=== PATIENT | male | born 1935 | race Caucasian/White ===

== ENCOUNTER 2016-11-05 19:33 | Inpatient (IN) | payer BC ==
[~2016-11-05] VITALS: Ht 190.5 cm; Wt 89.9 kg
[2016-11-05 21:02] LABS: HEMATOCRIT 44.7 % (38.0-50.0); MCH 31.4 PG (29.0-34.0); MCHC 34.5 G/DL (30.0-36.0); MCV 91.2 FL (86-99); MEAN PLAT.VOLUME 11.7 uM^3 (9.0-12.4); PLATELET COUNT 182 K/uL (156-360); RBC DIS.WIDTH-CV 13.3 % (11.8-14.6); RBC DIS.WIDTH-SD 43.5 % (39-53)
[2016-11-05 21:11] LABS: CHLORIDE 107 mEq/L (99-109); POTASSIUM 4.7 mEq/L (3.7-5.4)
[2016-11-05 21:12] LABS: SODIUM 137 mEq/L (136-147)
[2016-11-05 21:13] LABS: GLUCOSE 176 mg/dL (70-99)
[2016-11-05 21:15] LABS: ANION GAP 9 MEQ/L (2-14)
[2016-11-05 21:17] LABS: GFR ESTIMATE (CALCULATED) > 59 mL/min/
[2016-11-05 21:18] LABS: UREA NITROGEN (BUN) 18 mg/dL (9-23)
[2016-11-05 21:24] LABS: TROP-I INTERPRETATION NEGATIVE; TROPONIN-I < 0.01 ng/mL (0.0-0.30)
[2016-11-05 21:28] LABS: DIGOXIN 0.5 ng/mL (0.8-2.0)
[2016-11-05 21:48] LABS: TOTAL BILIRUBIN 0.6 mg/dL (0.0-1.0)
[2016-11-05 21:49] LABS: ALKALINE PHOSPHATASE 73 IU/L (3-129)
[2016-11-05 21:53] LABS: LIPASE 45 U/L (1.0-51.0)
[2016-11-05 22:29] LABS: INFLUENZA A VIRAL ANTIGEN NEGATIVE; INFLUENZA B VIRAL ANTIGEN NEGATIVE
[2016-11-05] MEDS ORDERED: DIGOXIN125 MCG PO (23:38)
[2016-11-05] MEDS ORDERED: DIGOX125 MCG PO (23:39)
[2016-11-05] MEDS ORDERED: PRADAXA150 MG PO (23:40)
[2016-11-05] MEDS ORDERED: VITAMIN D31000 UNI2 PO (23:40)
[2016-11-05] MEDS ORDERED: METOPROLOL TART25 MG PO (23:40)
[2016-11-05] MEDS ORDERED: NEURONTIN100 MG PO (23:42)
[2016-11-05] MEDS ORDERED: ALPHAGAN 0100 DROP/5 BOTH EYES (23:42)
[2016-11-05] MEDS ORDERED: ARICEPT10 MG PO (23:43)
[2016-11-05] MEDS ORDERED: LATANOPROST2.5 ML BOTH EYES (23:43)
[2016-11-05] MEDS ORDERED: TAMSULOSIN HCL0.4 MG PO (23:43)
[2016-11-05] MEDS ORDERED: VITAMIN B-12500 MC5 SL (23:44)
[2016-11-05] MEDS ORDERED: DESYREL100 MG PO (23:44)
[2016-11-05] MEDS ORDERED: DUONEB 2.5-0.5 M3 ML AEROSOL (23:45)
[2016-11-06] VITALS (7 sets, daily range): BP systolic 80–135; BP diastolic 51–75
[2016-11-06 00:47] LABS: ADD MIUA? YES; BILIRUBIN NEGATIVE; BLOOD MODERATE; COLOR YELLOW ((YELLOW)); GLUCOSE (STRIP) NEGATIVE; KETONES NEGATIVE; LEUKOCYTES LARGE; NITRITE POSITIVE; PROTEIN (STRIP) TRACE; SPECIFIC GRAVITY 1.023 (1.000-1.030); UROBILINOGEN 0.2 MG/DL (0.2-1.0)
[2016-11-06 01:35] LABS: BACTERIA 4+; EPITHELIAL CELLS RARE; MUCUS 1+; WHITE BLOOD CELLS TNTC /HPF (0-5)
[2016-11-06 01:36] LABS: CASTS PRESENT /LPF; CRYSTALS NONE SEEN; HYALINE CASTS 0-5 /LPF
[2016-11-06 07:15] LABS: TROP-I INTERPRETATION NEGATIVE; TROPONIN-I < 0.01 ng/mL (0.0-0.30)
[2016-11-06 12:23] LABS: TROP-I INTERPRETATION NEGATIVE; TROPONIN-I < 0.01 ng/mL (0.0-0.30)
[2016-11-07 00:20] VITALS: BP 116/70
[2016-11-07 05:41] VITALS: BP 110/56
[2016-11-07 09:00] VITALS: BP 129/59
[2016-11-07 09:06] LABS: MCH 30.7 PG (29.0-34.0); MCHC 33.5 G/DL (30.0-36.0); MCV 91.8 FL (86-99); MEAN PLAT.VOLUME 11.8 uM^3 (9.0-12.4); PLATELET COUNT 178 K/uL (156-360); RBC DIS.WIDTH-CV 13.4 % (11.8-14.6); RBC DIS.WIDTH-SD 44.5 % (39-53); RED BLOOD COUNT 5.01 M/uL (4.00-5.50); WHITE BLOOD COUNT 6.2 K/uL (4.1-10.2)
[2016-11-07 09:35] LABS: ANION GAP 7 MEQ/L (2-14); CHLORIDE 105 MEQ/L (99-109); GFR ESTIMATE (CALCULATED) > 59 mL/min/; POTASSIUM 4.3 MEQ/L (3.7-5.4); SAMPLE HEMOLYSIS CHECK 0; SAMPLE ICTERIC CHECK 0; SAMPLE LIPEMIA CHECK 0; SODIUM 137 MEQ/L (136-147); UREA NITROGEN (BUN) 13 mg/dL (9-23)
[2016-11-07 09:41] LABS: GLUCOSE 92 mg/dL (70-99)
[2016-11-07] MEDS ORDERED: CIPRO500 MG PO (09:52)
[2016-11-07 11:35] VITALS: BP 134/79
== END 2016-11-07 16:38 | disposition home or self-care (01) | DRG 690 ==
LOC: EME 19:33 → EDOF 11-06 00:51 → 5WEST 11-06 00:51 → EDOF 11-06 00:51 → 5WEST 11-06 01:55
PROVIDERS: Emergency Medicine; Hospitalist
DX: N39.0 Urinary tract infection, site not specified (principal); I48.2 Chronic atrial fibrillation; G31.83 Neurocognitive disorder with Lewy bodies; R07.89 Other chest pain; R55 Syncope and collapse; F02.80 Dementia in other diseases classified elsewhere, unspecified severity, without behavioral disturbance, psychotic disturbance, mood disturbance, and anxiety; I10 Essential (primary) hypertension; H40.9 Unspecified glaucoma; Z91.81 History of falling; R94.31 Abnormal electrocardiogram [ECG] [EKG]; Z79.899 Other long term (current) drug therapy; Z87.891 Personal history of nicotine dependence
CPT/HCPCS: 70450; 71020; 80048; 80053; 80162; 81003; 83605; 83690; 84484; 85027; 87502; 93005; 99202; 99281; 99285; G8978 GP CJ; G8979 GP CI; J0696; J7030; J7050; J7120

== ENCOUNTER 2016-12-07 12:14 | Emergency (ER) | payer BC ==
[~2016-12-07] VITALS: Ht 190.5 cm; Wt 87.7 kg
[~2016-12-07 12:14] MED LIST: ALPHAGAN 0100 DROP/5 BOTH EYES; ARICEPT10 MG PO; CIPRO500 MG PO; DESYREL100 MG PO; DIGOX125 MCG PO; DIGOXIN125 MCG PO; DUONEB 2.5-0.5 M3 ML AEROSOL; LATANOPROST2.5 ML BOTH EYES; METOPROLOL TART25 MG PO; NEURONTIN100 MG PO; PRADAXA150 MG PO; TAMSULOSIN HCL0.4 MG PO; VITAMIN B-12500 MC5 SL; VITAMIN D31000 UNI2 PO
[2016-12-07 14:33] LABS: EOSINOPHIL (%) 2.4 % (0-5); EOSINOPHIL COUNT 0.3 K/uL (0-0.3); HEMATOCRIT 45.6 % (38.0-50.0); IMMATURE GRANULOCYTE (%) 0.4 % (0.0-0.7); IMMATURE GRANULOCYTE COUNT 0.4 K/uL; MCH 31.8 PG (29.0-34.0); MCHC 35.3 G/DL (30.0-36.0); MCV 89.9 FL (86-99); MEAN PLAT.VOLUME 11.2 uM^3 (9.0-12.4); MONOCYTE (%) 6.5 % (3-12); MONOCYTE COUNT 0.7 K/uL (0-0.8); NEUTROPHIL (%) 72.7 % (45-76); NEUTROPHIL COUNT 8.2 K/uL (1.8-6.4); PLATELET COUNT 189 K/uL (156-360); RBC DIS.WIDTH-SD 42.1 % (39-53); RED BLOOD COUNT 5.07 M/uL (4.00-5.50); WHITE BLOOD COUNT 11.2 K/uL (4.1-10.2)
[2016-12-07 14:39] LABS: CHLORIDE 108 mEq/L (99-109); POTASSIUM 4.5 mEq/L (3.7-5.4); SODIUM 140 mEq/L (136-147)
[2016-12-07 14:41] LABS: GLUCOSE 109 mg/dL (70-99)
[2016-12-07 14:42] LABS: ANION GAP 11 MEQ/L (2-14)
[2016-12-07 14:45] LABS: GFR ESTIMATE (CALCULATED) > 59 mL/min/
[2016-12-07 14:46] LABS: UREA NITROGEN (BUN) 18 mg/dL (9-23)
[2016-12-07] MEDS ORDERED: PERCOCET 5/31 TABLET PO (15:06)
[2016-12-07 16:10] VITALS: BP 141/104
== END 2016-12-07 16:44 | disposition home or self-care (01) ==
LOC: EME 12:14
PROVIDERS: Emergency Medicine
DX: S22.41XA Multiple fractures of ribs, right side, initial encounter for closed fracture (principal); M25.551 Pain in right hip; W18.30XA Fall on same level, unspecified, initial encounter; Y92.199 Unspecified place in other specified residential institution as the place of occurrence of the external cause; I10 Essential (primary) hypertension; G30.9 Alzheimer's disease, unspecified; F03.90 Unspecified dementia, unspecified severity, without behavioral disturbance, psychotic disturbance, mood disturbance, and anxiety; Z91.81 History of falling; Z87.891 Personal history of nicotine dependence
CPT/HCPCS: 70450; 71101; 73502; 80048; 85025; 93005; 99281; 99285

== ENCOUNTER 2016-12-10 04:49 | Emergency (ER) | payer BC ==
[~2016-12-10] VITALS: Ht 190.5 cm; Wt 84.3 kg
[~2016-12-10 04:49] MED LIST changes: +PERCOCET 5/31 TABLET PO
[2016-12-10 06:23] LABS: HEMATOCRIT 45.6 % (38.0-50.0); MCH 30.6 PG (29.0-34.0); MCHC 34.2 G/DL (30.0-36.0); MCV 89.6 FL (86-99); MEAN PLAT.VOLUME 11.4 uM^3 (9.0-12.4); PLATELET COUNT 219 K/uL (156-360); RBC DIS.WIDTH-CV 13.1 % (11.8-14.6); RBC DIS.WIDTH-SD 42.2 % (39-53); RED BLOOD COUNT 5.09 M/uL (4.00-5.50); WHITE BLOOD COUNT 10.6 K/uL (4.1-10.2)
[2016-12-10 06:36] LABS: ADD MIUA? YES; BILIRUBIN NEGATIVE; BLOOD SMALL; COLOR YELLOW ((YELLOW)); GLUCOSE (STRIP) NEGATIVE; KETONES NEGATIVE; LEUKOCYTES MODERATE; NITRITE POSITIVE; PROTEIN (STRIP) NEGATIVE; SPECIFIC GRAVITY 1.021 (1.000-1.030); UROBILINOGEN 0.2 MG/DL (0.2-1.0)
[2016-12-10 06:38] LABS: CHLORIDE 106 mEq/L (99-109); POTASSIUM 4.7 mEq/L (3.7-5.4); SODIUM 139 mEq/L (136-147)
[2016-12-10 06:39] LABS: GLUCOSE 104 mg/dL (70-99)
[2016-12-10 06:39] LABS: BACTERIA NONE SEEN /HPF; EPITHELIAL CELLS RARE /HPF; MUCUS 1+ /LPF; RED BLOOD CELLS 20-30 /HPF (0-5); UCUL ADDED? YES; WHITE BLOOD CELLS TNTC /HPF (0-5)
[2016-12-10 06:41] LABS: ANION GAP 9 MEQ/L (2-14)
[2016-12-10 06:43] LABS: GFR ESTIMATE (CALCULATED) > 59 mL/min/
[2016-12-10] MEDS ORDERED: BACTRIM,SEPT1 TABLET PO (06:43)
[2016-12-10 06:44] LABS: UREA NITROGEN (BUN) 21 mg/dL (9-23)
[2016-12-10 06:47] LABS: TROP-I INTERPRETATION NEGATIVE; TROPONIN-I < 0.01 ng/mL (0.0-0.30)
[2016-12-10 07:41] VITALS: BP 107/69
== END 2016-12-10 07:47 | disposition home or self-care (01) ==
LOC: EME → EDBD 04:49 → EME 07:47
PROVIDERS: Emergency Medicine
DX: S22.49XD Multiple fractures of ribs, unspecified side, subsequent encounter for fracture with routine healing (principal); N39.0 Urinary tract infection, site not specified; W18.30XA Fall on same level, unspecified, initial encounter; Y92.199 Unspecified place in other specified residential institution as the place of occurrence of the external cause; Z91.81 History of falling; G30.9 Alzheimer's disease, unspecified; F03.90 Unspecified dementia, unspecified severity, without behavioral disturbance, psychotic disturbance, mood disturbance, and anxiety; I10 Essential (primary) hypertension; Z87.891 Personal history of nicotine dependence
CPT/HCPCS: 70450; 80048; 81003; 84484; 85027; 87086; 93005; 99281; 99284; J0696

== ENCOUNTER 2016-12-12 12:08 | Inpatient (IN) | payer BC ==
[~2016-12-12] VITALS: Ht 188 cm; Wt 83.7 kg
[~2016-12-12 12:08] MED LIST changes: +BACTRIM,SEPT1 TABLET PO
[2016-12-12 12:56] LABS: EOSINOPHIL (%) 0.5 % (0-5); EOSINOPHIL COUNT 0.1 K/uL (0-0.3); HEMATOCRIT 46.4 % (38.0-50.0); IMMATURE GRANULOCYTE (%) 0.2 % (0.0-0.7); IMMATURE GRANULOCYTE COUNT 0.2 K/uL; LYMPHOCYTE COUNT 1.4 K/uL (1.0-2.8); MCH 30.8 PG (29.0-34.0); MCHC 33.8 G/DL (30.0-36.0); MEAN PLAT.VOLUME 11.1 uM^3 (9.0-12.4); MONOCYTE (%) 5.5 % (3-12); MONOCYTE COUNT 0.7 K/uL (0-0.8); NEUTROPHIL (%) 81.7 % (45-76); NEUTROPHIL COUNT 9.9 K/uL (1.8-6.4); PLATELET COUNT 233 K/uL (156-360); RBC DIS.WIDTH-CV 13.1 % (11.8-14.6); RBC DIS.WIDTH-SD 42.7 % (39-53); WHITE BLOOD COUNT 12.1 K/uL (4.1-10.2)
[2016-12-12 13:08] LABS: CHLORIDE 109 mEq/L (99-109); POTASSIUM 4.3 mEq/L (3.7-5.4); SODIUM 142 mEq/L (136-147)
[2016-12-12 13:10] LABS: INTER. NORMALIZED RATIO 1.1; PROTHROMBIN TIME 11.3 (9.2-11.2); PTT 36.6 (25-32)
[2016-12-12 13:12] LABS: ANION GAP 10 MEQ/L (2-14)
[2016-12-12 13:14] LABS: GFR ESTIMATE (CALCULATED) > 59 mL/min/; GLUCOSE 186 mg/dL (70-99)
[2016-12-12 13:15] LABS: UREA NITROGEN (BUN) 23 mg/dL (9-23)
[2016-12-12 13:20] LABS: TROP-I INTERPRETATION NEGATIVE; TROPONIN-I 0.08 ng/mL (0.0-0.30)
[2016-12-12 14:55] LABS: TROP-I INTERPRETATION NEGATIVE; TROPONIN-I 0.11 ng/mL (0.0-0.30)
[2016-12-12] MEDS ORDERED: ZGUARD (15:55)
[2016-12-12] MEDS ORDERED: ATIVAN0.5 MG PO (15:56)
[2016-12-12] MEDS ORDERED: LEXAPRO10 MG PO (15:57)
[2016-12-12] MEDS ORDERED: BACTRIM,SEPT1 TABLET PO (15:58)
[2016-12-12 19:41] LABS: TROP-I INTERPRETATION NEGATIVE; TROPONIN-I 0.15 ng/mL (0.0-0.30)
[2016-12-12 20:00] VITALS: BP 114/79
[2016-12-13] VITALS: BP 120/82
[2016-12-13 02:31] LABS: TROP-I INTERPRETATION NEGATIVE; TROPONIN-I 0.13 ng/mL (0.0-0.30)
[2016-12-13 07:49] VITALS: BP 161/68
[2016-12-13 10:08] LABS: EOSINOPHIL (%) 1.9 % (0-5); EOSINOPHIL COUNT 0.2 K/uL (0-0.3); HEMATOCRIT 45.2 % (38.0-50.0); IMMATURE GRANULOCYTE (%) 0.2 % (0.0-0.7); LYMPHOCYTE COUNT 3.4 K/uL (1.0-2.8); MCH 29.9 PG (29.0-34.0); MCHC 32.5 G/DL (30.0-36.0); MCV 92.1 FL (86-99); MEAN PLAT.VOLUME 11.8 uM^3 (9.0-12.4); MONOCYTE (%) 9.7 % (3-12); MONOCYTE COUNT 0.9 K/uL (0-0.8); NEUTROPHIL (%) 52.1 % (45-76); NEUTROPHIL COUNT 4.9 K/uL (1.8-6.4); PLATELET COUNT 239 K/uL (156-360); RBC DIS.WIDTH-CV 13.2 % (11.8-14.6); RBC DIS.WIDTH-SD 44.3 % (39-53); RED BLOOD COUNT 4.91 M/uL (4.00-5.50); WHITE BLOOD COUNT 9.4 K/uL (4.1-10.2)
[2016-12-13 10:39] LABS: ALKALINE PHOSPHATASE 74 IU/L (3-129); ANION GAP 9 MEQ/L (2-14); CHLORIDE 106 MEQ/L (99-109); DIRECT BILIRUBIN 0.2 mg/dL (0.0-0.3); GFR ESTIMATE (CALCULATED) > 59 mL/min/; POTASSIUM 4.4 MEQ/L (3.7-5.4); SAMPLE HEMOLYSIS CHECK 0; SAMPLE ICTERIC CHECK 0; SAMPLE LIPEMIA CHECK 0; SODIUM 140 MEQ/L (136-147); TOTAL BILIRUBIN 1.2 MG/DL (0.0-1.0); UREA NITROGEN (BUN) 21 mg/dL (9-23)
[2016-12-13 10:50] LABS: GLUCOSE 106 mg/dL (70-99)
[2016-12-13 11:33] VITALS: BP 96/68
[2016-12-13 15:37] VITALS: BP 121/70
[2016-12-13 20:00] VITALS: BP 100/65
[2016-12-13 23:31] VITALS: BP 119/75
[2016-12-14 04:39] VITALS: BP 108/62
[2016-12-14 10:38] VITALS: BP 123/89
[2016-12-14 10:41] VITALS: BP 93/63; BP 94/66
[2016-12-14 10:52] LABS: HEMATOCRIT 44.6 % (38.0-50.0); MCH 30.1 PG (29.0-34.0); MCV 91.2 FL (86-99); MEAN PLAT.VOLUME 11.5 uM^3 (9.0-12.4); PLATELET COUNT 245 K/uL (156-360); RBC DIS.WIDTH-CV 13.1 % (11.8-14.6); RBC DIS.WIDTH-SD 43.4 % (39-53); RED BLOOD COUNT 4.89 M/uL (4.00-5.50); WHITE BLOOD COUNT 9.1 K/uL (4.1-10.2)
[2016-12-14 11:23] LABS: ANION GAP 7 MEQ/L (2-14); CHLORIDE 105 MEQ/L (99-109); GFR ESTIMATE (CALCULATED) > 59 mL/min/; GLUCOSE 98 mg/dL (70-99); POTASSIUM 4.2 MEQ/L (3.7-5.4); SAMPLE HEMOLYSIS CHECK 0; SAMPLE ICTERIC CHECK 0; SAMPLE LIPEMIA CHECK 0; SODIUM 136 MEQ/L (136-147); UREA NITROGEN (BUN) 24 mg/dL (9-23)
[2016-12-14 12:31] LABS: DIGOXIN < 0.3 ng/mL (0.8-2.0)
[2016-12-14 16:42] VITALS: BP 93/61
[2016-12-14 18:14] LABS: ADD MIUA? YES; BILIRUBIN NEGATIVE; BLOOD NEGATIVE; COLOR YELLOW ((YELLOW)); GLUCOSE (STRIP) NEGATIVE; KETONES NEGATIVE; LEUKOCYTES MODERATE; NITRITE NEGATIVE; PROTEIN (STRIP) NEGATIVE; SPECIFIC GRAVITY 1.025 (1.000-1.030); UROBILINOGEN 0.2 MG/DL (0.2-1.0)
[2016-12-14 18:40] LABS: BACTERIA NONE SEEN /HPF; EPITHELIAL CELLS RARE /HPF; HYALINE CASTS 0-5 /LPF; MUCUS 2+ /LPF; UCUL ADDED? NO; WHITE BLOOD CELLS 20-30 /HPF (0-5)
[2016-12-14 19:15] VITALS: BP 98/61
[2016-12-15] VITALS (7 sets, daily range): BP systolic 98–129; BP diastolic 58–82
[2016-12-15 06:21] LABS: ALKALINE PHOSPHATASE 61 IU/L (3-129); ANION GAP 9 MEQ/L (2-14); CHLORIDE 106 MEQ/L (99-109); GFR ESTIMATE (CALCULATED) > 59 mL/min/; GLUCOSE 97 mg/dL (70-99); POTASSIUM 4.2 MEQ/L (3.7-5.4); SAMPLE HEMOLYSIS CHECK 0; SAMPLE ICTERIC CHECK 0; SAMPLE LIPEMIA CHECK 0; SODIUM 135 MEQ/L (136-147); UREA NITROGEN (BUN) 21 mg/dL (9-23)
[2016-12-15 06:22] LABS: TOTAL BILIRUBIN 0.9 MG/DL (0.0-1.0)
[2016-12-15 06:35] LABS: EOSINOPHIL (%) 2.8 % (0-5); EOSINOPHIL COUNT 0.3 K/uL (0-0.3); HEMATOCRIT 40.4 % (38.0-50.0); IMMATURE GRANULOCYTE (%) 0.2 % (0.0-0.7); LYMPHOCYTE COUNT 2.7 K/uL (1.0-2.8); MCH 31.2 PG (29.0-34.0); MCHC 34.2 G/DL (30.0-36.0); MCV 91.4 FL (86-99); MEAN PLAT.VOLUME 12.1 uM^3 (9.0-12.4); MONOCYTE COUNT 0.6 K/uL (0-0.8); NEUTROPHIL (%) 60.5 % (45-76); NEUTROPHIL COUNT 5.5 K/uL (1.8-6.4); PLATELET COUNT 236 K/uL (156-360); RBC DIS.WIDTH-SD 43.5 % (39-53); RED BLOOD COUNT 4.42 M/uL (4.00-5.50); WHITE BLOOD COUNT 9.1 K/uL (4.1-10.2)
[2016-12-16] VITALS: BP 126/86
[2016-12-16 04:00] VITALS: BP 109/75
[2016-12-16 07:00] LABS: EOSINOPHIL (%) 3.3 % (0-5); EOSINOPHIL COUNT 0.3 K/uL (0-0.3); HEMATOCRIT 41.5 % (38.0-50.0); IMMATURE GRANULOCYTE (%) 0.3 % (0.0-0.7); LYMPHOCYTE COUNT 2.1 K/uL (1.0-2.8); MCH 30.2 PG (29.0-34.0); MCHC 33.5 G/DL (30.0-36.0); MCV 90.2 FL (86-99); MEAN PLAT.VOLUME 11.8 uM^3 (9.0-12.4); MONOCYTE (%) 7.5 % (3-12); MONOCYTE COUNT 0.6 K/uL (0-0.8); NEUTROPHIL (%) 60.9 % (45-76); NEUTROPHIL COUNT 4.6 K/uL (1.8-6.4); PLATELET COUNT 256 K/uL (156-360); RBC DIS.WIDTH-SD 42.2 % (39-53); WHITE BLOOD COUNT 7.5 K/uL (4.1-10.2)
[2016-12-16 07:08] VITALS: BP 115/71
[2016-12-16 07:24] LABS: ALKALINE PHOSPHATASE 74 IU/L (3-129); ANION GAP 7 MEQ/L (2-14); CHLORIDE 106 MEQ/L (99-109); GFR ESTIMATE (CALCULATED) > 59 mL/min/; GLUCOSE 83 mg/dL (70-99); POTASSIUM 4.1 MEQ/L (3.7-5.4); SAMPLE HEMOLYSIS CHECK 0; SAMPLE ICTERIC CHECK 0; SAMPLE LIPEMIA CHECK 0; SODIUM 134 MEQ/L (136-147); TOTAL BILIRUBIN 0.9 MG/DL (0.0-1.0); UREA NITROGEN (BUN) 14 mg/dL (9-23)
[2016-12-16 11:00] VITALS: BP 115/61
[2016-12-16] MEDS ORDERED: ASPIR-LOW81 MG PO (13:49)
[2016-12-16] MEDS ORDERED: CEFDINIR300 MG PO (13:49)
[2016-12-16 16:00] VITALS: BP 106/55
== END 2016-12-16 16:19 | DRG 310 ==
LOC: EME 12:08 → 5WEST 15:23 → EDOF 15:23 → 5WEST 17:35
PROVIDERS: Emergency Medicine; Hospitalist; Physician Assistant
DX: I48.2 Chronic atrial fibrillation (principal); F22 Delusional disorders; I65.23 Occlusion and stenosis of bilateral carotid arteries; N31.2 Flaccid neuropathic bladder, not elsewhere classified; R55 Syncope and collapse; G31.83 Neurocognitive disorder with Lewy bodies; F02.80 Dementia in other diseases classified elsewhere, unspecified severity, without behavioral disturbance, psychotic disturbance, mood disturbance, and anxiety; I95.1 Orthostatic hypotension; I10 Essential (primary) hypertension; B30.3 Acute epidemic hemorrhagic conjunctivitis (enteroviral); H40.9 Unspecified glaucoma; R73.03 Prediabetes; R33.9 Retention of urine, unspecified; Z91.81 History of falling
CPT/HCPCS: 70450; 71010; 80048; 80053; 80069; 80076; 80162; 81003; 82607; 82746; 84484; 85025; 85027; 85610; 85730; 92610 GN; 93005; 93306; 93880; 97530 GP; 99202; 99281; 99285; G0378; J0696; J1644; J7030; J7050

== ENCOUNTER 2017-01-30 02:57 | Inpatient (IN) | payer BC ==
[~2017-01-30] VITALS: Ht 177.8 cm; Wt 79.5 kg
[~2017-01-30 02:57] MED LIST changes: +ASPIR-LOW81 MG PO; +ATIVAN0.5 MG PO; +CEFDINIR300 MG PO; +LEXAPRO10 MG PO; +ZGUARD
[2017-01-30 03:45] LABS: BASOPHIL COUNT 0.1 K/uL (0-0.1); EOSINOPHIL (%) 0.6 % (0-5); EOSINOPHIL COUNT 0.1 K/uL (0-0.3); IMMATURE GRANULOCYTE (%) 0.4 % (0.0-0.7); INSTRUMENT ABS NEUTROPHIL CT 8.4 K/uL; LYMPHOCYTE COUNT 1.7 K/uL (1.0-2.8); MCHC 33.5 G/DL (30.0-36.0); MCV 92.5 FL (86-99); MEAN PLAT.VOLUME 10.8 uM^3 (9.0-12.4); MONOCYTE (%) 6.7 % (3-12); MONOCYTE COUNT 0.7 K/uL (0-0.8); NEUTROPHIL (%) 76.6 % (45-76); NEUTROPHIL COUNT 8.4 K/uL (1.8-6.4); PLATELET COUNT 241 K/uL (156-360); RBC DIS.WIDTH-CV 13.1 % (11.8-14.6); RBC DIS.WIDTH-SD 44.7 % (39-53); RED BLOOD COUNT 5.19 M/uL (4.00-5.50); WHITE BLOOD COUNT 10.9 K/uL (4.1-10.2)
[2017-01-30 03:55] LABS: CHLORIDE 106 mEq/L (99-109); POTASSIUM 5.1 mEq/L (3.7-5.4); SODIUM 137 mEq/L (136-147)
[2017-01-30 03:56] LABS: INTER. NORMALIZED RATIO 1.1; PROTHROMBIN TIME 11.2 (9.2-11.2); PTT 29.2 (25-32)
[2017-01-30 03:57] LABS: GLUCOSE 113 mg/dL (70-99)
[2017-01-30 03:58] LABS: ANION GAP 10 MEQ/L (2-14)
[2017-01-30 04:01] LABS: GFR ESTIMATE (CALCULATED) 56 mL/min/
[2017-01-30 04:02] LABS: UREA NITROGEN (BUN) 17 mg/dL (9-23)
[2017-01-30 04:06] LABS: TROP-I INTERPRETATION NEGATIVE; TROPONIN-I < 0.01 ng/mL (0.0-0.30)
[2017-01-30] MEDS ORDERED: PRADAXA150 MG PO (04:11)
[2017-01-30 04:38] LABS: ADD MIUA? YES; BILIRUBIN NEGATIVE; BLOOD NEGATIVE; COLOR AMBER ((YELLOW)); GLUCOSE (STRIP) NEGATIVE; KETONES 5; LEUKOCYTES MODERATE; NITRITE POSITIVE; PROTEIN (STRIP) 100; SPECIFIC GRAVITY 1.018 (1.000-1.030); UROBILINOGEN 0.2 MG/DL (0.2-1.0)
[2017-01-30 05:03] LABS: BACTERIA 1+ /HPF; EPITHELIAL CELLS RARE /HPF; HYALINE CASTS 30-40 /LPF; MUCUS 4+ /LPF; UCUL ADDED? YES; WHITE BLOOD CELLS TNTC /HPF (0-5); WHITE BLOOD CELLS CLUMP MANY /HPF (0-5)
[2017-01-30 08:30] VITALS: BP 111/70
[2017-01-30 11:27] VITALS: BP 121/70
[2017-01-30 20:18] VITALS: BP 122/63
[2017-01-31] VITALS (9 sets, daily range): BP systolic 127–169; BP diastolic 68–95
[2017-02-01] VITALS (9 sets, daily range): BP systolic 116–162; BP diastolic 87–103
[2017-02-01 11:01] LABS: ANION GAP 11 MEQ/L (2-14); CHLORIDE 106 MEQ/L (99-109); GFR ESTIMATE (CALCULATED) > 59 mL/min/; GLUCOSE 111 mg/dL (70-99); POTASSIUM 4.6 MEQ/L (3.7-5.4); SAMPLE HEMOLYSIS CHECK 0; SAMPLE ICTERIC CHECK 0; SAMPLE LIPEMIA CHECK 0; SODIUM 139 MEQ/L (136-147); UREA NITROGEN (BUN) 15 mg/dL (9-23)
[2017-02-01 11:08] LABS: HEMATOCRIT 48.5 % (38.0-50.0); MCH 30.7 PG (29.0-34.0); MCV 93.1 FL (86-99); MEAN PLAT.VOLUME 11.5 uM^3 (9.0-12.4); PLATELET COUNT 245 K/uL (156-360); RBC DIS.WIDTH-CV 13.1 % (11.8-14.6); RBC DIS.WIDTH-SD 44.8 % (39-53); RED BLOOD COUNT 5.21 M/uL (4.00-5.50); WHITE BLOOD COUNT 12.2 K/uL (4.1-10.2)
[2017-02-01 21:51] LABS: METH RESISTANT S AUREUS PCR NEGATIVE (NEGATIVE)
[2017-02-01 22:00] LABS: SPECIMEN PROCESSING CONTROL PASS
[2017-02-01 22:01] LABS: PROBE CHECK PASS
[2017-02-02] VITALS (18 sets, daily range): BP systolic 104–164; BP diastolic 71–108
[2017-02-02 11:21] LABS: MCH 30.9 PG (29.0-34.0); MCHC 33.5 G/DL (30.0-36.0); MCV 92.4 FL (86-99); MEAN PLAT.VOLUME 11.3 uM^3 (9.0-12.4); PLATELET COUNT 235 K/uL (156-360); RBC DIS.WIDTH-CV 13.1 % (11.8-14.6); RBC DIS.WIDTH-SD 44.3 % (39-53); RED BLOOD COUNT 4.98 M/uL (4.00-5.50)
[2017-02-02 11:45] LABS: ANION GAP 11 MEQ/L (2-14); CHLORIDE 108 MEQ/L (99-109); GFR ESTIMATE (CALCULATED) > 59 mL/min/; GLUCOSE 161 mg/dL (70-99); POTASSIUM 4.9 MEQ/L (3.7-5.4); SAMPLE HEMOLYSIS CHECK 0; SAMPLE ICTERIC CHECK 0; SAMPLE LIPEMIA CHECK 0; SODIUM 138 MEQ/L (136-147); UREA NITROGEN (BUN) 17 mg/dL (9-23)
[2017-02-02 19:21] LABS: ADD MIUA? NO; BILIRUBIN NEGATIVE; BLOOD NEGATIVE; COLOR YELLOW ((YELLOW)); GLUCOSE (STRIP) 50; KETONES 5; LEUKOCYTES NEGATIVE; NITRITE NEGATIVE; PROTEIN (STRIP) NEGATIVE; SPECIFIC GRAVITY 1.019 (1.000-1.030); UROBILINOGEN 0.2 MG/DL (0.2-1.0)
[2017-02-03] VITALS (12 sets, daily range): BP systolic 123–187; BP diastolic 74–114
[2017-02-03 05:58] LABS: EOSINOPHIL (%) 0.2 % (0-5); HEMATOCRIT 45.8 % (38.0-50.0); IMMATURE GRANULOCYTE (%) 0.6 % (0.0-0.7); IMMATURE GRANULOCYTE COUNT 0.1 K/uL; LYMPHOCYTE COUNT 2.7 K/uL (1.0-2.8); MCH 31.1 PG (29.0-34.0); MCHC 34.1 G/DL (30.0-36.0); MCV 91.2 FL (86-99); MEAN PLAT.VOLUME 11.1 uM^3 (9.0-12.4); MONOCYTE (%) 7.8 % (3-12); MONOCYTE COUNT 1.3 K/uL (0-0.8); NEUTROPHIL (%) 74.4 % (45-76); PLATELET COUNT 256 K/uL (156-360); RBC DIS.WIDTH-SD 43.8 % (39-53); RED BLOOD COUNT 5.02 M/uL (4.00-5.50); WHITE BLOOD COUNT 16.1 K/uL (4.1-10.2)
[2017-02-03 06:18] LABS: ANION GAP 9 MEQ/L (2-14); CHLORIDE 105 MEQ/L (99-109); POTASSIUM 4.6 MEQ/L (3.7-5.4); SAMPLE HEMOLYSIS CHECK 0; SAMPLE ICTERIC CHECK 0; SAMPLE LIPEMIA CHECK 0; SODIUM 137 MEQ/L (136-147)
[2017-02-03 06:23] LABS: GFR ESTIMATE (CALCULATED) > 59 mL/min/; GLUCOSE 123 mg/dL (70-99); UREA NITROGEN (BUN) 17 mg/dL (9-23)
[2017-02-04 05:47] LABS: MCH 30.4 PG (29.0-34.0); MCHC 33.5 G/DL (30.0-36.0); MCV 90.9 FL (86-99); MEAN PLAT.VOLUME 11.6 uM^3 (9.0-12.4); PLATELET COUNT 242 K/uL (156-360); RBC DIS.WIDTH-CV 12.9 % (11.8-14.6); RED BLOOD COUNT 4.73 M/uL (4.00-5.50); WHITE BLOOD COUNT 12.6 K/uL (4.1-10.2)
[2017-02-04 05:59] LABS: ANION GAP 12 MEQ/L (2-14); CHLORIDE 101 MEQ/L (99-109); GFR ESTIMATE (CALCULATED) > 59 mL/min/; GLUCOSE 114 mg/dL (70-99); SAMPLE HEMOLYSIS CHECK 1; SAMPLE ICTERIC CHECK 0; SAMPLE LIPEMIA CHECK 0; SODIUM 134 MEQ/L (136-147); UREA NITROGEN (BUN) 13 mg/dL (9-23)
[2017-02-04 06:26] LABS: POTASSIUM 3.9 MEQ/L (3.7-5.4)
[2017-02-04 07:33] VITALS: BP 168/85
[2017-02-04 11:50] VITALS: BP 138/82
[2017-02-04 16:10] LABS: CARBOXY HGB 2.6 % (0-5); PCO2 31 mm Hg (35-45); PO2 79 mm Hg (80-100); pH 7.45 (7.35-7.45)
[2017-02-04 16:11] LABS: BASE EXCESS -1.4 mEq/L (-3 to +3); BICARBONATE 21.5 mEq/L (22-26); COMMENTS - BLOOD GASES A+C+; DEVICE RA; METHEMOGLOBIN 1.4 % (0-1.5); SITE LR
[2017-02-04 16:18] VITALS: BP 158/93
[2017-02-04 19:35] VITALS: BP 126/76
[2017-02-04 23:27] VITALS: BP 1569/98; BP 159/86
[2017-02-05 03:59] VITALS: BP 168/87
[2017-02-05 06:24] LABS: MCHC 34.4 G/DL (30.0-36.0); MEAN PLAT.VOLUME 11.3 uM^3 (9.0-12.4); PLATELET COUNT 256 K/uL (156-360); RBC DIS.WIDTH-CV 12.7 % (11.8-14.6); RBC DIS.WIDTH-SD 42.1 % (39-53); WHITE BLOOD COUNT 11.2 K/uL (4.1-10.2)
[2017-02-05 06:42] LABS: ANION GAP 9 MEQ/L (2-14); CHLORIDE 101 MEQ/L (99-109); GFR ESTIMATE (CALCULATED) > 59 mL/min/; GLUCOSE 123 mg/dL (70-99); POTASSIUM 4.2 MEQ/L (3.7-5.4); SAMPLE HEMOLYSIS CHECK 0; SAMPLE ICTERIC CHECK 0; SAMPLE LIPEMIA CHECK 0; SODIUM 131 MEQ/L (136-147); UREA NITROGEN (BUN) 15 mg/dL (9-23)
[2017-02-05 09:30] VITALS: BP 167/104
[2017-02-05 12:41] VITALS: BP 142/69
[2017-02-05 15:57] VITALS: BP 138/69
[2017-02-05 19:17] VITALS: BP 126/67
[2017-02-05 23:52] VITALS: BP 118/90
[2017-02-06 03:16] VITALS: BP 127/69
[2017-02-06 09:00] VITALS: BP 129/81
[2017-02-06 19:18] VITALS: BP 126/77
[2017-02-07 07:34] VITALS: BP 141/88
[2017-02-07 16:12] VITALS: BP 143/88
[2017-02-07 19:31] VITALS: BP 100/67
[2017-02-08 16:42] VITALS: BP 00/00
== END 2017-02-08 19:00 | DRG 25 ==
LOC: EME → EDSEX 02:57 → EDBD 02:57 → EME 02:57 → EDOF 05:08 → 3EAST 05:08 → 4WEST 05:08 → EDOF 05:08 → 4EAST 05:08 → 3EAST 06:07 → 4EAST 01-31 13:20 → 4WEST 02-01 19:59 → 3EAST 02-03 12:18 → 4EAST 02-04 17:51 → 5EAST 02-07 15:55
PROVIDERS: Emergency Medicine; Internal Medicine; Physician Assistant; Surgery; Surgery Surgical Critical Care
PROC: 00C40ZZ Extirpation of Matter from Intracranial Subdural Space, Open Approach (ICD-10-PCS; principal; 2017-02-01)
DX: S06.5X9A Traumatic subdural hemorrhage with loss of consciousness of unspecified duration, initial encounter (principal); N39.0 Urinary tract infection, site not specified; J96.01 Acute respiratory failure with hypoxia; J18.9 Pneumonia, unspecified organism; Y95 Nosocomial condition; W19.XXXA Unspecified fall, initial encounter; R41.0 Disorientation, unspecified; I48.2 Chronic atrial fibrillation; G30.9 Alzheimer's disease, unspecified; F02.80 Dementia in other diseases classified elsewhere, unspecified severity, without behavioral disturbance, psychotic disturbance, mood disturbance, and anxiety; I95.1 Orthostatic hypotension; I10 Essential (primary) hypertension; G40.909 Epilepsy, unspecified, not intractable, without status epilepticus; H40.9 Unspecified glaucoma; Z66 Do not resuscitate; Z51.5 Encounter for palliative care; Y92.193 Bedroom in other specified residential institution as the place of occurrence of the external cause; Z79.01 Long term (current) use of anticoagulants; Z79.82 Long term (current) use of aspirin; Z91.81 History of falling; Z87.891 Personal history of nicotine dependence
CPT/HCPCS: 36600; 70450; 71010; 80048; 81003; 82803; 84484; 85025; 85027; 85610; 85730; 87086; 87641; 93005; 94799; 99281; 99285; C1713; J0131; J0690; J0696; J1100; J1160; J1170; J1953; J2060; J2270; J2405; J2543; J2710; J3010; J3480; J7042; J7050; S0028